=== PATIENT | male | born 1945 | race Caucasian/White ===

== ENCOUNTER → 2023-05-08 | Outpatient (REF) | payer MEDICARE, OTHER | LOC: ZCOL.LAB 17:21 | DX: L02.31 Cutaneous abscess of buttock (principal) ==

== ENCOUNTER 2023-12-04 14:50 | Inpatient (IN) | payer MEDICARE, OTHER ==
[~2023-12-04] VITALS: Ht 182.9 cm; Wt 94.7 kg
[~2023-12-04 14:50] MED LIST: LOPID 600M600 MG/TAB PO; PRINIVIL40 MG PO; TRUSOPT OCUMETE10 ML OU; XALATAN EYE DROPS OU; ZETIA 10MG TAB10 MG PO
[2024-01-07 09:36] LABS: BASO % 0.3 % (0.0-2.0); EOS # 0.1 K/mm3 (0.0-0.7); EOS % 1.1 % (0.0-4.0); GRAN # 6.1 K/mm3 (1.4-6.5); GRAN % 67.4 % (42.2-75.2); HEMATOCRIT 48.7 % (42.0-52.0); HEMOGLOBIN 16.1 g/dl (13.5-18.0); LYMPH # 2.2 K/mm3 (1.2-3.4); LYMPH % 24.1 % (20.0-51.0); MEAN CELL VOLUME 87 fl (80.0-100.0); MEAN CORPUSCULAR HEMOGLOBIN 29 pg (27-31); MEAN CORPUSCULAR HGB CONC 33 g/dl (33.0-37.0); MEAN PLATELET VOLUME 10.6 fl (7.4-10.4); MONO # 0.6 K/mm3 (0.1-0.6); MONO % 6.8 % (1.7-9.3); PLATELET COUNT 232 K/mm3 (130-400); RED BLOOD COUNT 5.57 M/mm3 (4.20-5.60); REDCELL DISTRIBUTION WIDTH-CV 13.5 % (11.5-14.5)
[2024-01-07 09:53] LABS: CALCIUM 9.8 mg/dL (8.4-10.2); CREATININE, serum 1.44 mg/dL (0.72-1.25); POTASSIUM 4.8 mEq/L (3.5-4.5)
[2024-01-08] VITALS (12 sets, daily range): BP systolic 131–151; BP diastolic 34–64; PULSE 57–75; TEMP 97–99.3
[2024-01-08] MEDS ORDERED: LR 1,000 ML IV SCH (07:00)
[2024-01-08] MEDS ORDERED: fentaNYL 50 MCG/ML 2 ML VIAL ONE (08:25)
[2024-01-08] MEDS ORDERED: Lidocaine PF 2% (20 MG/ML) 5 ML VIAL ONE (08:25)
[2024-01-08] MEDS ORDERED: Ondansetron 4 MG/2 ML VIAL ONE (08:25)
[2024-01-08] MEDS ORDERED: dexAMETHasone 10 MG/ML VIAL ONE (08:25)
[2024-01-08] MEDS ORDERED: Rocuronium 50 MG/5 ML Multi-Dose VIAL ONE ×2 (08:26→12:02)
[2024-01-08] MEDS ORDERED: Midazolam 2 MG/2 ML VIAL ONE (08:26)
[2024-01-08] MEDS ORDERED: Gabapentin 100 MG CAP PO SCH (08:30)
[2024-01-08] MEDS ORDERED: Celecoxib 200 MG CAP PO SCH (08:30)
[2024-01-08] MEDS ORDERED: Acetaminophen 500 MG TAB PO SCH ×2 (08:30→14:45)
[2024-01-08] MEDS ORDERED: ePHEDrine 50 MG/ML VIAL ONE (11:11)
[2024-01-08] MEDS ORDERED: Topical Skin Adhesive 1 EACH (1 ML) TOP ONE (11:37)
[2024-01-08] MEDS ORDERED: fentaNYL 50 MCG/ML 1 ML SYRINGE/VIAL [PACU/SDC ONLY] IV PRN (11:45)
[2024-01-08] MEDS ORDERED: hydrALAZINE 20 MG/ML 1 ML VIAL IV PRN (11:45)
[2024-01-08] MEDS ORDERED: Meperidine 50 MG/ML 1 ML VIAL IV PRN (11:45)
[2024-01-08] MEDS ORDERED: Ondansetron 4 MG/2 ML VIAL IV PRN ×2 (11:45→13:00)
[2024-01-08] MEDS ORDERED: HYDROmorphone 1 MG/1 ML SYRINGE [PACU/SDC ONLY] IV PRN (11:45)
[2024-01-08] MEDS ORDERED: NORCO 325 MG-51 TAB PO (12:55)
[2024-01-08] MEDS ORDERED: Naloxone 0.4 MG/ML VIAL IV PRN (13:00)
[2024-01-08] MEDS ORDERED: Morphine 4 MG/ML VIAL IV PRN (13:00)
[2024-01-08] MEDS ORDERED: oxyCODONE 5 MG TAB PO PRN (13:00)
--- NOTE | 2024-01-08 14:45 | NUR ---
Patient up to surgical floor from PACU, pt drowsy but arousable, c/o 8/10 pain in his back and abdomen. 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 Medeiros. PRNs given as ordered, LR infusing in IV in right hand. Postop vital signs in place. Bed in lowest position with call light within reach.
[2024-01-08] MEDS ORDERED: Gabapentin 100 MG CAP PO ONE (16:52)
--- NOTE | 2024-01-08 18:00 | NUR ---
Dr. Medeiros to the bedside, discussed cased with provider, rodriguez still draining bright red blood, occasional clots, minimal output. Verbal order to discontinue rodriguez catheter. Rodriguez discontinued without difficulty, large clot noted at the tip of the catheter. x1 void after catheter was removed, also red with clots. Ambulated around room, standby assist x1, sitting in chair with call light within reach.
[2024-01-08] MEDS ORDERED: Ezetimibe 10 MG TAB PO SCH (21:00)
[2024-01-08] MEDS ORDERED: Latanoprost 0.005% Ophth Soln 2.5 ML BOTTLE OP SCH (21:00)
--- NOTE | 2024-01-08 22:54 | NUR ---
PT RESTING IN BED. ALERT AND ORIENTEDX4. ASSESSED PT. RATES PAIN 5/10 IN THE ABDOMEN. GAVE TYLENOL. PT INFORMED THIS NURSE THAT HE HAD ALREADY TAKEN HIS HOME MEDS THAT HE BROUGHT WITH HIM. THIS NURSE EDUCATED PT THAT HE SHOULD NOT TAKE HIS OWN HOME MEDS AND THAT WE WILL GIVE THEM TO HIM. PT VERBALIZED UNDERSTANDING. ABDOMENAL LAP SITES ARE INTACT. PT IS PASSING GAS. NO OTHER COMPLAINTS AT THIS TIME. CALL LIGHT WITHIN REACH.
[2024-01-09] VITALS (11 sets, daily range): BP systolic 133–154; BP diastolic 57–68; PULSE 54–63; TEMP 97.7–98.9
--- NOTE | 2024-01-09 00:53 | NUR ---
reports recieved from OLVIN Hanson. pt is a&ox4 resting in bed. vss. x5 abdominal lap sites and 1 midline incisions are cdi. fluids infusing into right hand IV. scds to ble. pt denies needs at this time. call light in reach.
--- NOTE | 2024-01-09 05:53 | NUR ---
pt reports having blood in his urine still but has cleared up. encouranged patient to drink more fluids and to urinate in his urinal so we can have a more accurate output.
[2024-01-09 06:16] LABS: BASO % 0.1 % (0.0-2.0); GRAN # 12.1 K/mm3 (1.4-6.5); GRAN % 87.4 % (42.2-75.2); HEMATOCRIT 38.5 % (42.0-52.0); LYMPH # 0.7 K/mm3 (1.2-3.4); LYMPH % 5.3 % (20.0-51.0); MEAN CELL VOLUME 86 fl (80.0-100.0); MEAN CORPUSCULAR HEMOGLOBIN 29 pg (27-31); MEAN CORPUSCULAR HGB CONC 34 g/dl (33.0-37.0); MEAN PLATELET VOLUME 11.3 fl (7.4-10.4); MONO # 0.9 K/mm3 (0.1-0.6); MONO % 6.6 % (1.7-9.3); PLATELET COUNT 185 K/mm3 (130-400); REDCELL DISTRIBUTION WIDTH-CV 13.2 % (11.5-14.5)
[2024-01-09 06:19] LABS: HEMOGLOBIN 13.2 g/dl (13.5-18.0)
[2024-01-09 06:36] LABS: CALCIUM 8.6 mg/dL (8.4-10.2); CREATININE, serum 1.79 mg/dL (0.72-1.25); POTASSIUM 5.1 mEq/L (3.5-4.5)
[2024-01-09] MEDS ORDERED: Gemfibrozil 600 MG TAB PO SCH (07:30)
[2024-01-09] MEDS ORDERED: LR 1,000 ML IV SCH (09:00)
[2024-01-09] MEDS ORDERED: Lisinopril 20 MG TAB PO SCH (09:00)
--- NOTE | 2024-01-09 10:49 | NUR ---
silk worker met with patient to discuss discharge planning. Patient lives in [place] by himself. Patient's emergency contact is Feliberto, patient's communications project lead, P# [phone]. SW discussed whom would be the next of kin for patient. Patient stated he is not close with any of his family except his brother whom he reports two weeks ago. Patient stated his sister in law would probably be the next closest person, but would not provide name or phone number. Patient reports he has a declaration for life saving measures and gave a copy of this for his chart at the hospital. Patient does not have a DPOA-HC on file. PCP is Dr. Owen, Pharmacy is [facility] in or [facility]. No DME at home. Patient reports to be independent with ADLS. Patient reports he is able to transport himself to and from appointments. Patient would like to return home at time of discharge. SW discussed home health services, patient was not interested at this time. SW provided the Medicare.gov list of options for home health in case patient wanted those services upon discharge or when returning home. Patient understood, no questions or concerns at this time. Discharge plan: Home
--- NOTE | 2024-01-09 13:35 | NUR ---
SPOKE TO MAURO HAYES WITH UROLOGY, EXPLAINED PATIENT HAS VOIDED 350CC GREATER HALF OF SHIFT, CONTINUES TO HAVE URGE TO VOID BUT UNABLE WITHOUT DIFFICULTY. BLADDER SCAN SHOWED >625CC. PA REPORTED TO MOVE FORWARD WITH CATHETER.
--- NOTE | 2024-01-09 14:22 | NUR ---
Initial visit; Patient very uncomfortable and states that he is hoping thy do something soon. Martínez is [employer] and in close contact with his Administration Physician who has involved prayer groups and many witin their [employer] to pray for him. He welcomed Court Commissioner to keep him in her prayers.
--- NOTE | 2024-01-09 17:00 | NUR ---
MOSLEY INSERTED AT 1510, CURRENT OUTPUT MEASURED AT 1225 CC. DARK RED WITH BLOOD CLOTS.
--- NOTE | 2024-01-09 21:01 | NUR ---
Patient assessed at this time, see shift assessment, reports pain to abdomen, PS of 4-5/10, denies the need for pain meds at this time, still with rodriguez draining red tinged with small clots noted on the bag, IV infusing well on the right hand, denies further needs, not agreeable to walk at this time, call light and personal items within reach, will continue to monitor.
[2024-01-10 00:28] VITALS: BP 139/66; PULSE 63; TEMP 99.7
--- NOTE | 2024-01-10 00:44 | NUR ---
Patient ambulated the hallway at this time, passing gas and had a bm, refused SCD's denies further needs.
[2024-01-10 00:57] VITALS: BP_SYST 139
[2024-01-10 04:25] VITALS: BP 148/65; PULSE 59; TEMP 98
[2024-01-10 04:52] VITALS: BP_SYST 148
--- NOTE | 2024-01-10 08:36 | NUR ---
pt a&ox4 resting in bed. vss. meds given and assessment complete. pt reports pain a 2/10. x5 lap and midline incisions are cdi. rodriguez to dd w yellow urine output. pt tolerating diet. fluids infusing into right hand IV. urology in with pt and ok to discharge, pt contacting pricing analyst and will update us when he will have a ride available. call light in reach. no needs at this time.
[2024-01-10 08:48] VITALS: BP 141/48; PULSE 66; TEMP 98
[2024-01-10 09:10] VITALS: BP_SYST 141
--- NOTE | 2024-01-10 09:45 | NUR ---
INT discontinued. discharge instructions and leg bag teaching provided to patient. all questions answered. pt waiting for ride to arrive.
--- NOTE | 2024-01-10 10:30 | NUR ---
pt escorted to personal vehicle for discharge.
== END 2024-01-10 10:30 | disposition home or self-care (01) | DRG 661 ==
LOC: INPTSU 01-08 07:37 → SURG 01-08 07:37
PROVIDERS: ADMIT Urology
PROC: 8E0W4CZ Robotic Assisted Procedure of Trunk Region, Percutaneous Endoscopic Approach (ICD-10-PCS; 2024-01-08)
PROC: 0TT14ZZ Resection of Left Kidney, Percutaneous Endoscopic Approach (ICD-10-PCS; principal; 2024-01-08 10:15)
DX: N28.89 Other specified disorders of kidney and ureter (principal)
CPT/HCPCS: A4314; A9284; J0690; J1100; J1171; J2250; J2405; J2704; J2795; J3010; J7120